=== PATIENT | female | born 1965 | race Caucasian/White ===

== ENCOUNTER 2017-11-07 18:48 | Emergency (ER) | payer BC ==
[2017-11-07] MEDS ORDERED: Acetaminophen/HYDROcodone 325-5 MG Tab PO ONE (20:30)
--- NOTE | 2017-11-09 10:26 | CR ---
INDICATION: Injured right hand. Fell on ice. RIGHT HAND: Three views of the right hand revealed a spiral fracture of the shaft of the 5th metacarpal with adequate position and alignment of the fracture fragments - minimal offset of approximately 1-2 mm. There may also be 2 mm overriding of the fracture fragments. No other bone or joint abnormality was seen. IMPRESSION: Fifth metacarpal fracture site with relatively mild deformity. MTDD
--- NOTE | 2017-11-11 01:32 | ER ---
DATE SEEN: 11/07/2017 HISTORY OF PRESENT ILLNESS: This 52-year-old woman fell on her right hand today. She has pain in the right wrist and she notes she fell on the right side of her hand. Denies previous fracture. Otherwise, healthy. Smokes cigarettes. MEDICATIONS: 1. Eupora-3 oil. 2. Budesonide and formoterol - Symbicort. 3. Aspirin. 4. Albuterol. ALLERGIES: None. REVIEW OF SYSTEMS: Otherwise negative. PHYSICAL EXAMINATION: VITAL SIGNS: Blood pressure 133/85, heart rate 82, respirations 17, oxygen saturation 97%, temperature 36.7 degrees. GENERAL: Pleasant woman, in moderate discomfort with mild discomfort of her right hand. HEENT: Without abnormality. There is a smoking odor to her breath. NECK: No cervical adenopathy. No accessory muscle use. LUNGS: Clear without rales, rhonchi, or wheezes. HEART: S1, S2. No murmur. ABDOMEN: Soft. No guarding. No abdominal discomfort. MUSCULOSKELETAL: Right elbow without abnormality. Range of motion of the elbow and shoulder is normal. Right distal forearm, radiocarpal joint is nontender. Interosseous, nontender. Dorsiflexion and plantar flexion, slightly decreased because of pain in the 5th metacarpal. Mild swelling over the 5th metacarpal and mild over the 4th metacarpal in the right mid metacarpal. Capillary refill is normal. Radial and ulnar pulses intact. Sensation intact. Decreased range of motion, right MP joint by decrease to 50%. DIAGNOSTIC STUDIES: X-ray reveals a nondisplaced slightly angulated right distal metaphyseal fracture. Splint was fabricated and placed. The patient is to follow up with doctor in a week. ASSESSMENT: 1. Right distal 5th metacarpal fracture. 2. The patient is a smoker. PLAN: Follow up with doctor in a week. Elevate, ice, Tylenol, ibuprofen, and Vicodin for pain. /[id number] MCKINLEY/BIANCA
== END 2017-11-07 20:45 | disposition home or self-care (01) ==
LOC: FB.ED 18:48
DX: S62.326A Displaced fracture of shaft of fifth metacarpal bone, right hand, initial encounter for closed fracture (principal); F17.210 Nicotine dependence, cigarettes, uncomplicated; W19.XXXA Unspecified fall, initial encounter
CPT/HCPCS: 73130; 99283; A9270

== ENCOUNTER 2019-03-03 23:08 | Emergency (ER) | payer BC ==
--- NOTE | 2019-03-04 00:07 | EDM.PDOCBH ---
ED HPI GENERAL MEDICAL PROBLEM - General Chief Complaint: Behavioral/Psych Stated Complaint: PANICK ATTACK Time Seen by Provider: 03/03/19 23:40 Source of Information: Reports: Patient History Limitations: Reports: No Limitations - History of Present Illness INITIAL COMMENTS - FREE TEXT/NARRATIVE: 53-year-old female who reports she is under quite a bit of stress recently. Today at approximately 4 PM she got a call saying that her [id number] and at around 4:30 PM, her grandson ran away and they are still looking for him. Apparently, she went to bed after consuming some alcohol and awakened because she was thinking about her grandson and was informed that her grandson was still missing and at this time she began to fell very anxious and began to have increased breathing and then seem to be in quite a bit of distress and the family called 911. When EMS arrived, they found the patient was quite anxious was hyperventilating and although awake and alert and was not verbally responding. She apparently was given Versed 1 mg IV en route and she is much more calm when she arrives. She is no longer hyperventilating. When I evaluate the patient, she is calm and verbally conversant. She is in no respiratory distress. She is somewhat tearful but she is able to speak in complete sentences and is in no apparent distress. She does admit to drinking about 7 or 8 beers tonight owing to bed. She adamantly denies any suicidal ideation. She is oriented to person, place, time and situation. She denies any pain at this point. She rates her pain as a 0/10. There are no other associated signs or symptoms. There are no other modifying factors. 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 on 2 inhalers Psychiatric History: Reports: Anxiety, Depression - Infectious Disease History Infectious Disease History: Reports: Chicken Pox - Past Surgical History GI Surgical History: Reports: Cholecystectomy Female Surgical History: Reports: Section (3), Hysterectomy Social & Family History - Tobacco Use Smoking Status *Q: Current Every Day Smoker Years of Tobacco use: 35 Packs/Tins Daily: 0.5 - Caffeine Use Caffeine Use: Reports: Soda Caffeine Use Comment: 1 or 2 a week - Alcohol Use Alcohol Use History: Yes Alcohol Use Frequency: Daily Alcohol Use Comment: Patient admits to having 7-8 beers today. - Recreational Drug Use Recreational Drug Use: No - Living Situation & Occupation Occupation: Employed (Works at [employer] Social History Comment: Arrives via ambulance but multiple family members are here with her now including her and her daughter. ED ROS GENERAL - Review of Systems Review Of Systems: See Below Constitutional: Reports: No Symptoms HEENT: Reports: No Symptoms Respiratory: Reports: Shortness of Breath (With this episode but that has resolved now) Cardiovascular: Reports: Chest Pain (With this episode, but this has resolved now) Endocrine: Reports: No Symptoms GI/Abdominal: Reports: No Symptoms : Reports: No Symptoms Musculoskeletal: Reports: No Symptoms Skin: Reports: No Symptoms Neurological: Reports: No Symptoms Psychiatric: Reports: Anxiety. Denies: Suicidal Ideation Hematologic/Lymphatic: Reports: No Symptoms Immunologic: Reports: No Symptoms ED EXAM, BEHAVIORAL HEALTH - Physical Exam Exam: See Below Exam Limited By: No Limitations General Appearance: Alert, WD/WN, No Apparent Distress Eye Exam: Bilateral Eye: EOMI, Normal Inspection, PERRL Ears: Normal External Exam, Hearing Grossly Normal Nose: Normal Inspection, Normal Mucosa, No Blood Throat/Mouth: Normal Voice, No Airway Compromise, Other (Odor of alcohol on her breath) Head: Atraumatic, Normocephalic Neck: Normal Inspection, Supple, Non-Tender, Full Range of Motion Respiratory/Chest: No Respiratory Distress, Lungs Clear, Normal Breath Sounds, No Accessory Muscle Use, Chest Non-Tender Cardiovascular: Normal Peripheral Pulses, No JVD, Tachycardia GI/Abdominal: Normal Bowel Sounds, Soft, Non-Tender, No Organomegaly, No Distention Back Exam: Normal Inspection Extremities: Normal Inspection, Normal Range of Motion, Non-Tender, No Pedal Edema, Normal Capillary Refill Neurological: Alert, CN II-XII Intact, No Motor/Sensory Deficits, Oriented x 3 Psychiatric: Alert, Oriented, Depressed Mood. No: Homicidal Thoughts, Sabianism Delusions, Suicidal Plan, Suicidal Thoughts, Paranoid Thoughts Skin Exam: Warm, Dry, Intact, Normal color, No rash COURSE, BEHAVIORAL HEALTH COMP - Course Vital Signs: Last Vital Signs Temp 36.4 C 03/03/19 23:56 Pulse 110 H 03/03/19 23:56 Resp 15 03/03/19 23:56 BP 112/60 03/03/19 23:56 Pulse Ox 93 L 03/03/19 23:56 Re-Assessment/Re-Exam: 0004 hrs: Patient is much more calm. She is ambulatory without assistance. She is awake, alert and appropriate. She is oriented to person, place, time and situation. She is slightly tachycardic but otherwise vitally stable with normal oxygen saturation. She denies any suicidal ideation. She appears to be stable for discharge and her family is willing to take her home and watch her. Departure - Departure Time of Disposition: 00:10 Disposition: Home, Self-Care 01 Condition: Good Clinical Impression: Panic attack, Adjustment disorder with mixed emotional features Alcohol intoxication Qualifiers: Complication of substance-induced condition: uncomplicated Qualified Code(s): F10.920 - Alcohol use, unspecified with intoxication, uncomplicated - Discharge Information Instructions: Alcohol Intoxication, Panic Attack, Adjustment Disorder, Adult Referrals: PCP,None [Primary Care Provider] - Forms: ED Department Discharge Additional Instructions: You appear to have had a panic attack related to the stress in your life and also to your alcohol consumption. You should rest. You should drink plenty of fluids. I would advise you to decrease your alcohol use. Follow-up with your primary doctor this week if you feel your anxiety is still a problem. Back to the emergency department for trouble breathing, unrelenting vomiting, is wanting to harm yourself or other people or any other concerning sign or symptom.
== END 2019-03-04 00:11 | disposition home or self-care (01) ==
LOC: FB.ED 23:08
DX: F41.0 Panic disorder [episodic paroxysmal anxiety] (principal); F43.20 Adjustment disorder, unspecified; F10.120 Alcohol abuse with intoxication, uncomplicated; F32.9 Major depressive disorder, single episode, unspecified; F17.210 Nicotine dependence, cigarettes, uncomplicated
CPT/HCPCS: 99283

== ENCOUNTER 2021-06-05 20:06 | Emergency (ER) | payer BC ==
[2021-06-05] MEDS ORDERED: Ibuprofen 400 MG Tab PO ONE (20:22)
[2021-06-05] MEDS ORDERED: Acetaminophen 325 MG Tab PO ONE (20:22)
--- NOTE | 2021-06-05 20:22 | EDM.PDOC ---
ED HPI GENERAL MEDICAL PROBLEM - General Chief Complaint: Lower Extremity Injury/Pain Stated Complaint: Right knee pain Time Seen by Provider: 06/05/21 20:14 Source of Information: Reports: Patient History Limitations: Reports: No Limitations - History of Present Illness INITIAL COMMENTS - FREE TEXT/NARRATIVE: 55-year-old lady came to the emergency department for evaluation of right knee pain. She states that she was in good health and was at the [place] earlier this morning when she tried to her dog. Her dog ran and impacted the right side of her leg near her knee and her leg buckled inwards and she fell to the ground. She had immediate pain but was able to walk. She applied ice and took ibuprofen with some relief. However, over the course of the day she has had increased pain and now has difficulty ambulating. She has no fever, chills, chest pain, shortness of breath, cough, viral symptoms, change in bowel or bladder habits. Right Knee Pain Score (Numeric/FACES): 8 - Related Data Allergies Allergy/AdvReac Type Severity Reaction Status Date / Time No Known Allergies Allergy Verified 11/07/17 19:24 Home Meds: Home Meds Albuterol [Ventolin HFA] 8 gm IH DAILY 11/07/17 [History] Aspirin 325 mg PO DAILY 11/07/17 [History] Budesonide/Formoterol Fumarate [Symbicort 160-4.5 Mcg Inhaler] 2 puff INH BID 11/07/17 [History] Past Medical History Cardiovascular History: Reports: Other (See Below) Other Cardiovascular History: past hx pe 20 years ago Respiratory History: Reports: COPD, PE (20 years ago, not chronically anticoagulated now.), Other (See Below) Other Respiratory History: still a smoker for 35 years .5 pack/day. 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 Musculoskeletal History: Reports: Other (See Below) Other Musculoskeletal History: in with R hand injury Psychiatric History: Reports: Anxiety, Depression - Infectious Disease History Infectious Disease History: Reports: Chicken Pox - Past Surgical History GI Surgical History: Reports: Cholecystectomy Female Surgical History: Reports: Section (3), Hysterectomy Social & Family History - Family History Family Medical History: No Pertinent Family History - Caffeine Use Caffeine Use: Reports: Soda Caffeine Use Comment: 1 or 2 a week - Living Situation & Occupation Occupation: Employed (Works at [employer] Review of Systems - Review of Systems Review Of Systems: See Below Constitutional: Reports: No Symptoms Eyes: Reports: No Symptoms Ears: Reports: No Symptoms Nose: Reports: No Symptoms Mouth/Throat: Reports: No Symptoms Respiratory: Reports: No Symptoms Cardiovascular: Reports: No Symptoms GI/Abdominal: Reports: No Symptoms Genitourinary: Reports: No Symptoms Musculoskeletal: Reports: Leg Pain Skin: Reports: No Symptoms Neurological: Reports: No Symptoms Psychiatric: Reports: No Symptoms ED EXAM, GENERAL - Physical Exam Exam: See Below Exam Limited By: No Limitations General Appearance: Alert, WD/WN, No Apparent Distress Eye Exam: Bilateral Eye: EOMI Head: Atraumatic, Normocephalic Respiratory/Chest: No Respiratory Distress, Lungs Clear, Normal Breath Sounds Cardiovascular: Normal Peripheral Pulses, Regular Rate, Rhythm, No Edema Peripheral Pulses: 2+: Radial (L), Radial (R), Dorsalis Pedis (L), Dorsalis Pedis (R) GI/Abdominal: Normal Bowel Sounds Back Exam: Normal Inspection Extremities: Other (Range of motion of the bilateral knees is within normal limits. Left knee provocative exams are negative. Right knee provocative exams are also negative but there is significant tenderness to palpation with mild swelling just inferior and lateral to the patella, sensation/capillary refill intact ) Neurological: Alert, CN II-XII Intact, Normal Cognition Skin Exam: Warm, Dry, Intact Course - Vital Signs Text/Narrative:: Review of x-rays of the right knee show no fracture or dislocation. Patient likely has soft tissue and/or muscle strain injury. Last Recorded V/S: Last Vital Signs Temp 37.0 C 06/05/21 20:55 Pulse 113 H 06/05/21 20:55 Resp 16 06/05/21 20:55 BP 175/92 H 06/05/21 20:55 Pulse Ox 96 06/05/21 20:55 - Orders/Labs/Meds Orders: Active Orders 24 hr Category Date Time Status Knee 3V Rt [CR] Stat Exams 06/05/21 20:23 Taken Meds: Medications Discontinued Medications Generic Name Dose Route Start Last Admin Trade Name Freq PRN Reason Stop Dose Admin Acetaminophen 650 mg 06/05/21 20:22 06/05/21 20:46 Acetaminophen 325 Mg Tab PO 06/05/21 20:23 650 mg NOW ONE Administration Ibuprofen 400 mg 06/05/21 20:22 06/05/21 20:46 Ibuprofen 400 Mg Tab PO 06/05/21 20:23 400 mg ONETIME ONE Administration Departure - Departure Time of Disposition: 20:59 Disposition: Home, Self-Care 01 Clinical Impression: Knee contusion - Discharge Information *PRESCRIPTION DRUG MONITORING PROGRAM REVIEWED*: Not Applicable *COPY OF PRESCRIPTION DRUG MONITORING REPORT IN PATIENT MIGUEL: Not Applicable Instructions: Muscle Strain, [id number], Contusion, [id number] Referrals: Korey Hartman MD [Primary Care Provider] - Forms: ED Department Discharge Additional Instructions: Patient will be given an Agustín bandage for compression. Patient advised to rest, ice, elevate, use compression, and to alternate Tylenol and ibuprofen for pain control. Patient advised to follow-up with her primary care physician. Patient advised to follow-up as necessary if she continues to have increased pain and/or swelling. Patient advised that she may need rehabilitation. Sepsis Event Note (ED) - Focused Exam Vital Signs: Vital Signs Temp Pulse Resp BP Pulse Ox 06/05/21 20:55 37.0 C 113 H 16 175/92 H 96 06/05/21 20:48 37.0 C 113 H 16 175/92 H 96 - My Orders Last 24 Hours: My Active Orders 06/05/21 20:23 Knee 3V Rt [CR] Stat - Assessment/Plan Last 24 Hours: My Active Orders 06/05/21 20:23 Knee 3V Rt [CR] Stat
--- NOTE | 2021-06-06 11:46 | CR ---
INDICATION: Trauma - fall. RIGHT KNEE: Three views of the right knee were obtained (AP, lateral and patellar sunrise views) 06/05/21 - no comparisons. An acute fracture or dislocation was not identified. There is minimal prominence at the suprapatellar bursa raising question of a minimal knee joint effusion in that area. This should be correlated clinically however. Bone density appeared normal. No degenerative hypertrophic changes or abnormal bone density was suggested. IMPRESSION: 1. Question minimal knee joint effusion. 2. No acute fracture or dislocation. MTDD
== END 2021-06-05 21:21 | disposition home or self-care (01) ==
LOC: FB.ED 20:06
DX: S80.01XA Contusion of right knee, initial encounter (principal); J44.9 Chronic obstructive pulmonary disease, unspecified; Z79.82 Long term (current) use of aspirin; X50.1XXA Overexertion from prolonged static or awkward postures, initial encounter
CPT/HCPCS: 73562; 99283; A9270